=== PATIENT | female | born 1970 | race Caucasian/White ===

== ENCOUNTER 2020-07-21 18:31 | Emergency (ER) | payer MEDICAID ==
--- NOTE | 2020-07-21 19:13 | ER Document Report ---
ED Medical Screen (RME) - General Chief Complaint: Leg Swelling Stated Complaint: BACK PAIN,LEG SWELLING,SKIN ISSUE Time Seen by Provider: 07/21/20 19:08 Mode of Arrival: Ambulatory Notes: Patient presents complaining of lower extremity swelling for the past 5 days. Patient does report some shortness of breath. Patient reports she had a swollen knot to the right lower back area. Patient also complains of wounds to bilateral forearms face and neck that have been there for several months. 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 Patient also states she had a heart mass that was never followed up on. I have greeted and performed a rapid initial assessment of this patient. A comprehensive ED assessment and evaluation of the patient, analysis of test results and completion of the medical decision making process will be conducted by additional ED providers. - Related Data Allergies/Adverse Reactions: No Known Allergies Allergy (Verified 07/21/20 19:11) Physical Exam - Vital signs Vitals: Temp Pulse Resp BP Pulse Ox 98.0 F 86 16 127/71 H 100 07/21/20 18:40 07/21/20 18:40 07/21/20 18:40 07/21/20 18:40 07/21/20 18:40 - General General appearance: Alert Notes: 2+ bilateral lower extremity edema, multiple excoriated skin lesions to forearms face and neck in various stages of healing Course - Vital Signs Vital signs: Temp Pulse Resp BP Pulse Ox 98.0 F 86 16 127/71 H 100 07/21/20 18:40 07/21/20 18:40 07/21/20 18:40 07/21/20 18:40 07/21/20 18:40
--- NOTE | 2020-07-21 20:05 | ER Document Report ---
ED General - General Chief Complaint: Leg Swelling Stated Complaint: BACK PAIN,LEG SWELLING,SKIN ISSUE Time Seen by Provider: 07/21/20 19:08 Mode of Arrival: Ambulatory - [facility] Notes: 49-year-old female presents with lesions to her arms, face and back of neck. Patient states that she has a "history of MRSA". She states that for some time she has had these lesions to her arms. States that they start as a small bump, they "pop", then grow into large lesions. She states that she has been taking care of them by applying various creams, such as Desitin or Noxzema, she wraps her arms and then peels it off in the morning. She states when she peels it off there is an orange crust. She denies picking at these areas. She states that she believes it is because she shares a bed with a dog that has mange. She has noted discoloration to the right thumbnail, she states that "the MRSA has spread into the nail". Patient additionally states that she has had right-sided lower back pain for some time, it feels like a stabbing or hot sensation. No known injury. Patient also states that her "feet have been swollen to the max" for the past 5 days. She states that she elevates her legs which does not seem to change it. When asked if she has a history of blood clots, patient states "oh yeah I've had lots of clots all over me". She denies history of CHF. She denies chest pain or shortness of breath. She states that she has COPD. - Related Data Allergies/Adverse Reactions: No Known Allergies Allergy (Verified 07/21/20 19:11) Past Medical History - General Information source: Patient - Social History Smoking Status: Current Every Day Smoker Chew tobacco use (# tins/day): No Frequency of alcohol use: None Drug Abuse: Marijuana Family History: Other Patient has homicidal ideation: No Pulmonary Medical History: Reports: Hx COPD Endocrine Medical History: Reports: Hx Diabetes Mellitus Type 2 Review of Systems - Review of Systems Constitutional: denies: Fever EENT: No symptoms reported Cardiovascular: denies: Chest pain Respiratory: denies: Short of breath Gastrointestinal: denies: Abdominal pain Genitourinary: No symptoms reported Musculoskeletal: Back pain Skin: See HPI Neurological/Psychological: No symptoms reported Physical Exam - Vital signs Vitals: Temp Pulse Resp BP Pulse Ox 98.0 F 86 16 127/71 H 100 07/21/20 18:40 07/21/20 18:40 07/21/20 18:40 07/21/20 18:40 07/21/20 18:40 - General General appearance: Appears well, Alert In distress: None - HEENT Head: Normocephalic, Atraumatic Extraocular movements intact: Yes Pupils: PERRL Mouth/Lips: No: Lesions Mucous membranes: Normal Neck: Supple - Respiratory Breath sounds: Normal. No: Rales, Wheezing - Cardiovascular Rhythm: Regular Heart sounds: Normal auscultation Pulses: Normal: Dorsalis pedis - Abdominal Inspection: Obese Tenderness: Nontender - Back Back: Tender - Right SI joint. No: CVA tenderness, Vertebra tenderness - Extremities General upper extremity: Normal ROM General lower extremity: Edema - Nonpitting ankle/feet, Normal ROM - Neurological Neuro grossly intact: Yes Orientation: AAOx4 Motor strength normal: LUE, RUE, LLE, RLE Sensory: Normal - Psychological Associated symptoms: Other - Hyper - Skin Skin Temperature: Warm Notes: Patient with multiple sites of skin excoriations to bilateral forearms and hands, areas on face and to the back of neck. All lesions are superficial in nature. No expressible purulence, no areas of fluctuance. Mild surrounding erythema, no streaking. Few lesions have a yellow appearing crust Course - Re-evaluation Re-evalutation: 49-year-old female here for primary complaint of skin lesions. On exam, she has multiple superficial excoriations, some of them have a yellow appearing crust. The do not have any expressible purulence or fluctuance. These areas have an appearance of skin picking with impetigo, though patient denying this yet referencing she does pop the lesions. Do not have appearance of cellulitis at this time. Will initiate treatment with Bactrim and topical mupirocin, wrap the arms as well. Patient next complaint is chronic right-sided low back pain, she does have some SI joint tenderness, she is neurologically intact. Will initiate treatment with Motrin. Patient's final complaint which did have to be addressed with her to some point is the bilateral lower leg swelling, she does have a nonpitting edema to the dorsum of her feet and ankles, puffy in appearance. Question if she does have a history of blood clots, lower extremity ultrasound ordered to assess. Could be dependent edema. Her lungs are without rales, would have a low suspicion for CHF, BNP was ordered via the triage process. 07/21/20 20:49 No leukocytosis or left shift. No acute anemia. Electrolytes within normal limits. Creatinine within normal limits. Albumin within normal limits. Troponin/BNP negative. Urine is without proteinuria. 07/21/20 20:50 Chest x-ray is without edema, which correlates with physical exam 07/21/20 23:21 No DVT seen on ultrasound 07/21/20 23:29 Patient was updated on all lab results. Patient was advised to apply topical mupirocin and keep arms wrapped, advised against putting any other substances on her arms. Also has been prescribed a course of Bactrim. She was also advised to elevate legs when at rest, can wear INDERJIT hose during the day. Precautions given, patient stable at time of discharge. - Vital Signs Vital signs: Temp Pulse Resp BP Pulse Ox 98.0 F 86 16 127/71 H 100 07/21/20 19:12 07/21/20 18:40 07/21/20 18:40 07/21/20 18:40 07/21/20 18:40 - Laboratory Result Diagrams: 07/21/20 19:57 07/21/20 19:57 Laboratory results interpreted by me: 07/21/20 07/21/20 19:25 19:57 Eos % (Auto) 9.6 H Absolute Eos (auto) 1.0 H Urine Urobilinogen 4.0 H - Diagnostic Test Radiology reviewed: Image reviewed, Reports reviewed - EKG Interpretation by Me Additional EKG results interpreted by me: EKG as interpreted by me. Normal sinus rhythm, rate 76. Narrow QRS, QTC within normal limits. No ST segment elevation. No previous for comparison. Discharge - Discharge Clinical Impression: Skin lesion, Impetigo, Dependent edema Condition: Stable Disposition: HOME, SELF-CARE Instructions: Bactroban Ointment ([facility]) Additional Instructions: Please begin course of oral antibiotics. Please apply antibiotic ointment to arms twice a day, keep covered, do not apply any other substances. Please keep legs elevated while at rest. He may also wear compression stockings/INDERJIT hose during the day. Follow-up with your primary care doctor peer return to the emergency department for any concerning worsening symptoms. Prescriptions: Sulfamethoxazole/Trimethoprim [Bactrim Ds Tablet] 1 each PO BID 7 Days #14 tablet Mupirocin [Bactroban 2% Ointment 22 gm] 1 applic TP BID 10 Days #1 tube
[2020-07-21] MEDS ORDERED: SULFAMETHOXAZOLE/TRIMETHOPRIM 800-160 MG TABLET PO ONE (20:15)
[2020-07-21] MEDS ORDERED: MUPIROCIN 2% OINTMENT 22 GM TP ONE (20:15)
[2020-07-21] MEDS ORDERED: IBUPROFEN 800 MG TABLET PO ONE (20:15)
[2020-07-21 20:24] LABS: ABSOLUTE BASOPHILS # (AUTO) 0.1 10^3/uL (0.0-0.2); ABSOLUTE LYMPHOCYTES (AUTO) 2.5 10^3/uL (0.5-4.7); ABSOLUTE MONOCYTES (AUTO) 0.8 10^3/uL (0.1-1.4); ABSOLUTE NEUT (AUTO) 5.8 10^3/uL (1.7-8.2); BASOPHILS % (AUTO) 0.7 % (0-2); EOSINOPHILS % (AUTO) 9.6 % (0-6); HEMATOCRIT 42.4 % (36.0-47.0); HEMOGLOBIN 14.8 g/dL (12.0-15.5); LYMPHOCYTES % (AUTO) 24.5 % (13-45); MEAN CORPUSCULAR HEMOGLOBIN 32.5 pg (27.0-33.4); MEAN CORPUSCULAR HGB CONC 34.9 g/dL (32.0-36.0); MEAN CORPUSCULAR VOLUME 93 fl (80-97); MONOCYTES % (AUTO) 8.2 % (3-13); PLATELET COUNT 228 10^3/uL (150-450); RED BLOOD COUNT 4.56 10^6/uL (3.72-5.28); RED CELL DISTRIBUTION WIDTH 13.3 % (11.5-14.0); TOTAL CELLS COUNTED % (AUTO) 100 %; WHITE BLOOD COUNT 10.2 10^3/uL (4.0-10.5)
[2020-07-21 20:34] LABS: ALKALINE PHOSPHATASE 58 U/L (38-126); ANION GAP 7 (5-19); ASPARTATE AMINO TRANSFERASE 22 U/L (14-36); BILIRUBIN,DIRECT 0.4 mg/dL (0.0-0.4); BILIRUBIN,TOTAL 0.4 mg/dL (0.2-1.3); BLOOD UREA NITROGEN 13 mg/dL (7-20); CALCIUM 9.3 mg/dL (8.4-10.2); CARBON DIOXIDE 27 mmol/L (22-30); CHLORIDE 104 mmol/L (98-107); GLUCOSE 96 mg/dL (75-110); POTASSIUM 4.1 mmol/L (3.6-5.0); TOTAL PROTEIN 6.9 g/dL (6.3-8.2)
[2020-07-21 20:38] LABS: APPEARANCE,URINE SLIGHTLY-CLOUDY; BILIRUBIN,URINE NEGATIVE (NEGATIVE); COLOR,URINE YELLOW; GLUCOSE, URINE NEGATIVE (NEGATIVE); KETONES,URINE NEGATIVE (NEGATIVE); LEUKOCYTE ESTERASE,URINE NEGATIVE (NEGATIVE); NITRITE,URINE NEGATIVE (NEGATIVE); PROTEIN,URINE NEGATIVE (NEGATIVE); URINE SPECIFIC GRAVITY 1.023
--- NOTE | 2020-07-21 20:38 | RADIOLOGY REPORT (SQ) ---
EXAM DESCRIPTION: X-ray, single view of the chest CLINICAL HISTORY: 49 years Female, sob, LE swelling COMPARISON: None. FINDINGS: Lungs: Mild eventration of the right medial hemidiaphragm. No focal consolidation. No pneumothorax or pleural effusion. Mediastinum: Cardiac and mediastinal silhouette are normal. Bones: Osseous structures are normal. IMPRESSION: No acute process. No pneumonia or edema.
[2020-07-21 20:44] LABS: NT PRO BNP 41 pg/mL (<125)
[2020-07-21 20:45] LABS: TROPONIN I < 0.012 ng/mL
[2020-07-21 21:45] LABS: URINE AMPHETAMINES SCREEN NEGATIVE; URINE BARBITURATES SCREEN NEGATIVE; URINE BENZODIAZEPINES SCREEN NEGATIVE; URINE COCAINE SCREEN NEGATIVE; URINE METHADONE SCREEN NEGATIVE; URINE PHENCYCLIDINE SCREEN NEGATIVE
[2020-07-21 21:47] LABS: URINE MARIJUANA (THC) SCREEN UNCONFIRMED POSITIVE
--- NOTE | 2020-07-21 23:09 | RADIOLOGY REPORT (SQ) ---
EXAM DESCRIPTION: US EXTREMITY VEINS BILATERAL COMPLETED DATE/TME: 07/21/2020 20:16 CLINICAL HISTORY: 49 years, Female, b/l swelling, eval DVT COMPARISON: None. TECHNIQUE: Transverse and longitudinal sonographic images of the bilateral lower extremity deep venous system LIMITATIONS: None. FINDINGS: No visible areas of thrombus. Normal compression and augmentation throughout. Doppler images are unremarkable IMPRESSION: Negative exam copyright 2011 [employer]- All Rights Reserved
[2020-07-21 23:49] VITALS: BP 119/69
--- NOTE | 2020-07-22 07:24 | EKG REPORT ---
SEVERITY:- NORMAL ECG - SINUS RHYTHM : Confirmed by: Rod Groves MD 22-Jul-2020 07:23:58
== END 2020-07-21 23:45 | disposition home or self-care (01) ==
LOC: ER 18:31
DX: L01.00 Impetigo, unspecified (principal); R60.0 Localized edema; M54.9 Dorsalgia, unspecified; J44.9 Chronic obstructive pulmonary disease, unspecified; E11.9 Type 2 diabetes mellitus without complications; F17.200 Nicotine dependence, unspecified, uncomplicated; F12.10 Cannabis abuse, uncomplicated; Z86.14 Personal history of Methicillin resistant Staphylococcus aureus infection
CPT/HCPCS: 93005; 99285; 36415; 85025; 81025; 80053; 81001; 84484; 80307; 83880; 93970; 71045; 93010; J3490 ×3